=== PATIENT | male | born 1980 | race Caucasian/White ===

== ENCOUNTER 2017-01-22 19:32 | Emergency (ER) | payer OTHER ==
[2017-01-23 00:32] VITALS: BP 122/78
== END 2017-01-23 00:32 | disposition home or self-care (01) ==
LOC: ED 19:32
DX: M79.602 Pain in left arm (principal); M25.552 Pain in left hip; V43.32XA Unspecified car occupant injured in collision with other type car in nontraffic accident, initial encounter; Y93.89 Activity, other specified; Y92.481 Parking lot as the place of occurrence of the external cause; Y99.8 Other external cause status
CPT/HCPCS: J1885

== ENCOUNTER 2018-06-06 15:23 | Emergency (ER) | payer OTHER ==
[~2018-06-06] VITALS: Ht 182.9 cm; Wt 83.0 kg
[2018-06-06 15:29] VITALS: Ht 182.9 cm; Wt 83.0 kg
[2018-06-06 19:24] VITALS: BP 121/66
== END 2018-06-06 19:24 | disposition home or self-care (01) ==
LOC: ED 15:23
DX: J10.1 Influenza due to other identified influenza virus with other respiratory manifestations (principal)
CPT/HCPCS: 87804; J1885; Q0162